=== PATIENT | female | born 1990 | race Caucasian/White ===

== ENCOUNTER 2024-02-10 19:22 | Emergency (ER) | payer BC ==
[~2024-02-10] VITALS: Ht 162.6 cm; Wt 70.5 kg
[2024-02-10 20:43] VITALS: BP 108/79; PULSE 85; RESP 19; TEMP 98.4; O2SAT 97
[2024-02-10] MEDS ORDERED: OSEL75CA5 PO (21:25)
[2024-02-10] MEDS ORDERED: PROM1SOL4 PO (21:25)
--- NOTE | 2024-02-10 21:26 | ED.PDOC ---
SOB-HPI HPI Comments 33-year-old female presents to the ED chief complaint flu-like symptoms x3 days. Patient is complaining of fevers, cough, throat pain, nasal congestion, and body aches. He states he can ibuprofen Tylenol [id number] with little relief. She also notes that her boyfriend was recently diagnosed with influenza a via swab. Denies chest pain, difficulty breathing, shortness of breath, vomiting, or diarrhea. Chief Complaint: Flu like Time Seen by MD: 19:47 Primary Care Provider: NONE Reviewed notes: Nurses Notes, Medications, Allergies Information Source: Patient Mode of Arrival: Ambulatory Past Medical History PAST MEDICAL HISTORY: Denies Surgical History: Denies all surgeries Family History Family History: Unknown Social History Smoker: Cigarettes, Less Than 1 Pack/Day Alcohol: Occasionally Drugs: Denies Drug Use Lives In: Home Constitutional: reports: chills, fatigue, fever; denies: diaphoresis, malaise, sweats, weakness, others EENTM: reports: nasal discharge, throat pain; denies: blurred vision, double vision, ear bleeding, ear discharge, ear drainage, ear pain, ear ringing, eye pain, eye redness, hearing loss, mouth pain, mouth swelling, nose bleeding, nose congestion, nose pain, photophobia, tearing, throat swelling, voice changes, others Respiratory: reports: cough; denies: hemoptysis, orthopnea, SOB at rest, shortness of breath, SOB with excertion, stridor, wheezing, others Cardiovascular: denies: chest pain, dizzy spells, diaphoresis, Dyspnea on exertion, edema, irregular heart beat, left arm pain, lightheadedness, palpitations, PND, syncope, others Gastrointestinal: denies: abdomen distended, abdominal pain, blood streaked bowels, constipated, diarrhea, dysphagia, difficulty swallowing, hematemesis, melena, nausea, poor appetite, poor fluid intake, rectal bleeding, rectal pain, vomiting, others Genitourinary: denies: abnormal vagina bleeding, burning, dyspareunia, dysuria, flank pain, frequency, hematuria, incontinence, pain, , vagina discharge, urgency, others Neurological: denies: dizziness, fainting, headache, left sided numbness, left sided weakness, numbness, paresthesia, pre-existing deficit, right sided numbness, right sided weakness, seizure, speech problems, tingling, tremors, weakness, others Musculoskeletal: denies: back pain, gout, joint pain, joint swelling, muscle pain, muscle stiffness, neck pain, others Integumetry: denies: bruises, change in color, change in hair/nails, dryness, laceration, lesions, lumps, rash, wounds, others Allergic/Immunocompromised: denies: Difficulty Healing, Frequent Infections, Hives, Itching, others Hematologic/Lymphatic: denies: anemia, blood clots, easy bleeding, easy bruising, swollen glands, others Endocrine: denies: excessive hunger, excessive sweating, excessive thirst, excessive urination, flushing, intolerance to cold, intolerance to heat, unexplained weight gain, unexplained weight loss, others Psychiatric: denies: anxiety, bipolar disorder, depression, hopeless, panic disorder, schizophrenia, sleepless, suicidal, others Physical Exam General Appearance: No Apparent Distress, Normal HEENT: Pharyngeal Erythema, TMs Normal Neck: Full Range of Motion, Non-Tender, Normal, Normal Inspection Respiratory: Chest Non-Tender, Lungs Clear, No Accessory Muscle Use, No Respiratory Distress, Normal Breath Sounds Cardiovascular: No Edema, No JVD, No Murmur, No Gallop, Normal Peripheral Pulses, Regular Rate/Rhythm Breast Exam: Deferred Gastrointestinal: No Organomegaly, Non Tender, No Pulsatile Mass, Normal Bowel Sounds, Soft Genitalia: Deferred Pelvic: Deferred Rectal: Deferred Extremities: Normal capillary refill, Normal inspection, Normal range of motion, Non-tender, No pedal edema Musculoskeletal : Apperance: Normal 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 Was a procedure done?: No Differential Dx Differential Diagnosis: Pneumonia X-Ray, Labs, Meds, VS Vital Signs Date Time Temp Pulse Resp B/P (MAP) Pulse Ox O2 Delivery O2 Flow Rate FiO2 02/10/24 20:43 85 19 97 Room Air 02/10/24 20:43 98.4 85 19 108/79 (89) 97 98.4 02/10/24 20:02 98.4 93 18 117/85 (96) 98 X-Ray, Labs, Meds, VS Comment Likely influenza patient's boyfriend recently diagnosed swabbed for positive influenza A. Treat patient with Tamiflu. Also promethazine cough medicine. Thighs continue [id number] Tylenol or Motrin as needed for the pain and fever per labeled dosing instructions advised to rest increase p.o. fluids with electrolytes ER return precautions given patient indicated understanding. Time of 1ST Reevaluation: 21:23 Reevaluation 1ST: Improved Patient Education/Counseling: Diagnosis, Treatment, Prognosis, Need For Follow Up Family Education/Counseling: No Family Present Departure 1 Departure Time of Disposition: 21:23 Impression: Primary Impression: Influenza Disposition: HOME / SELF CARE / HOMELESS Condition: Stable e-Prescriptions Promethazine-Dm (Promethazine Dm 6.25-15 mg/5Ml) 1 Mela Mela 5 ML PO QID for 3 Days, #60 ML Prov: LOLIS RENE 02/10/24 Oseltamivir Phosphate (Tamiflu) 75 Mg Cap 1 CAP PO BID for 5 Days, #10 CAP Prov: LOLIS RENE 02/10/24 Discharged With: Self Critical Care Note Critical Care Time?: No Stability Stability form required: No Heart Score Heart Score: Heart Score Response (Comments) Value History N/A 0 EKG N/A 0 Age <45 0 Risk Factors N/A 0 Troponin N/A 0 Total 0 LOLIS RNEE Feb 10, 2024 21:26
== END 2024-02-10 21:43 | disposition home or self-care (01) ==
LOC: ER 19:22
DX: J11.1 Influenza due to unidentified influenza virus with other respiratory manifestations (principal); F17.210 Nicotine dependence, cigarettes, uncomplicated

== ENCOUNTER 2024-04-22 11:24 | Emergency (ER) | payer SELFPAY ==
[~2024-04-22] VITALS: Ht 162.6 cm; Wt 66.6 kg
[2024-04-22 11:52] LABS: Basophils # (auto) 0 10 ^3/uL (0-0.2); Basophils % (auto) 0.4 % (0.0-2.0); Eosinophils # (auto) 0 10 ^3/uL (0-0.8); Eosinophils % (auto) 0.1 % (0.0-7.0); Hematocrit 44.4 % (36.0-46.0); Hemoglobin 15.6 g/dL (12.2-16.2); Lymphocytes # (auto) 1.7 10 ^3/uL (0.4-5.4); Lymphocytes % (auto) 18.2 % (10.0-50.0); Mean Corpuscular Hgb Conc. 35.1 g/dL (32.0-36.0); Mean Corpuscular Volume 93.9 fL (80.0-100.0); Monocytes # (auto) 0.5 10 ^3/uL (0-1.3); Monocytes % (auto) 5.2 % (0.0-12.0); Neutrophils # (auto) 7.1 10 ^3/uL (1.6-8.6); Neutrophils % (auto) 76.1 % (37.0-80.0); Nucleated Red Blood Cells % 0.1 %; Platelet Count (auto) 294 10^3/uL (140-450); Red Blood Cells 4.73 10^6/uL (4.0-5.20); Red Cell Distribution Width 13.4 % (11.8-14.3); White Blood Cell 9.3 10^3/uL (4.4-10.8)
[2024-04-22 11:55] LABS: Urine Bacteria None Seen /hpf (None Seen)
[2024-04-22 12:01] LABS: Urine Blood Negative /uL (Negative); Urine Clarity Clear (Clear); Urine Color Yellow (Yellow); Urine Mucus FEW (None Seen); Urine Protein, UAD TRACE (Negative); Urine Specific Gravity 1.025 (1.001-1.035); Urine Squamous Epithelial Cell FEW /hpf (<5); Urine Urobilinogen Normal (Negative); Urine WBC 4 /HPF (0-5)
[2024-04-22 12:10] LABS: Alanine Aminotransferase 18 U/L (7-40); Alkaline Phosphatase 47 U/L (46-116); Anion Gap 9 (5-15); Aspartate Aminotransferase 23 U/L (13-40); BUN/Creatinine Ratio 9.3 (10.0-20.0); Carbon Dioxide 23 mmol/L (20-31); Chloride 106 mmol/L (98-107); Glucose 89 mg/dL (74-106); Lipase 34 U/L (12-53); Potassium 3.9 mmol/L (3.5-5.1); Sodium 138 mmol/L (136-145)
[2024-04-22 12:11] VITALS: PULSE 99; RESP 14; O2SAT 99
[2024-04-22 12:11] LABS: Albumin 5.2 g/dL (3.2-4.8); Bilirubin, Total 0.5 mg/dL (0.2-1.0); Blood Urea Nitrogen 7 mg/dL (9-23); Total Protein 8.5 g/dL (5.7-8.2)
--- NOTE | 2024-04-22 12:18 | ED.PDOC ---
GI ASSESSMENT HPI Comments 33Y F with PMHx gastric ulcer and presents to ED for chief complaint upper/mid abd pain [id number] with nausea/vomiting/diarrhea since 0400 today. Pt denies fever, urinary symptoms, chest pain, and SOB. Pt denies sick contact. Pt states she was treated for the gastric ulcer 10 years ago and has not had another one since then. Pt currently takes vitamins and Tylenol at home. No other symptoms reported. Chief Complaint: Nausea/Vomiting Time Seen by MD: 12:02 Primary Care Provider: NONE Reviewed Notes: Nurses Notes, Medications, Allergies Allergies: Coded Allergies: NO KNOWN ALLERGIES (Unverified , 10/10/09) Home Meds Active Scripts Omeprazole Magnesium (Omeprazole) 20 Mg Tab, 20 MG PO DAILY, #30 TAB Prov:RANDY DEAN MD 04/22/24 Ondansetron Odt 4MG Tab (ZOFRAN PO) 4 Mg Tb, 4 MG PO TID PRN, #30 TAB prn n/v ODT TAB-DISSOLVE IN MOUTH, THEN SWALLOW Prov:RANDY DEAN MD 04/22/24 Information Source: Patient Mode of Arrival: Ambulatory Timing: Hours Duration: Since onset Prehospital treatment: None Quality: Aching Vomitus: Bilious, Watery Stool: Watery Severity: Mild Recent: None Recent Hx of: None Pain Location: Epigastric Modifying Factors: Nothing Associated sign and symptoms: Nausea, Vomiting, Diarrhea, Abdominal Pain Past Medical History Past Medical History (Other): Gastric ulcer 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 History: PUBLIC 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 History: Denies all PUBLIC 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 INSPECTOR Hx Family History Family History: Unknown Social History Smoker: Cigarettes, Less Than 1 Pack/Day Alcohol: Occasionally Drugs: Denies Drug Use Lives In: Home Constitutional: denies: chills, diaphoresis, fatigue, fever, malaise, sweats, weakness, others EENTM: denies: blurred vision, double vision, ear bleeding, ear discharge, ear drainage, ear pain, ear ringing, eye pain, eye redness, hearing loss, mouth pain, mouth swelling, nasal discharge, nose bleeding, nose congestion, nose pain, photophobia, tearing, throat pain, throat swelling, voice changes, others Respiratory: denies: cough, hemoptysis, orthopnea, SOB at rest, shortness of breath, SOB with excertion, stridor, wheezing, others Cardiovascular: denies: chest pain, dizzy spells, diaphoresis, Dyspnea on exertion, edema, irregular heart beat, left arm pain, lightheadedness, palpitations, PND, syncope, others Gastrointestinal: reports: abdominal pain, diarrhea, nausea, vomiting; denies: abdomen distended, blood streaked bowels, constipated, dysphagia, difficulty swallowing, hematemesis, melena, poor appetite, poor fluid intake, rectal bleeding, rectal pain, others Genitourinary: denies: abnormal vagina bleeding, burning, dyspareunia, dysuria, flank pain, frequency, hematuria, incontinence, pain, , vagina discharge, urgency, others Neurological: denies: dizziness, fainting, headache, left sided numbness, left sided weakness, numbness, paresthesia, pre-existing deficit, right sided numbness, right sided weakness, seizure, speech problems, tingling, tremors, weakness, others Musculoskeletal: denies: back pain, gout, joint pain, joint swelling, muscle pain, muscle stiffness, neck pain, others Integumetry: denies: bruises, change in color, change in hair/nails, dryness, laceration, lesions, lumps, rash, wounds, others Allergic/Immunocompromised: denies: Difficulty Healing, Frequent Infections, Hives, Itching, others Hematologic/Lymphatic: denies: anemia, blood clots, easy bleeding, easy bruising, swollen glands, others Endocrine: denies: excessive hunger, excessive sweating, excessive thirst, excessive urination, flushing, intolerance to cold, intolerance to heat, unexplained weight gain, unexplained weight loss, others Psychiatric: denies: anxiety, bipolar disorder, depression, hopeless, panic disorder, schizophrenia, sleepless, suicidal, others All Other Systems: Reviewed and Negative Physical Exam General Appearance: Mild Distress HEENT: PERRL/EOMI, Other (dry mucous membranes) Neck: Full Range of Motion, Normal Inspection Respiratory: Chest Non-Tender, Lungs Clear, No Respiratory Distress, Normal Breath Sounds Cardiovascular: No Edema, No JVD, Regular Rate/Rhythm Breast Exam: Deferred Gastrointestinal: Epigastric, RUQ, Tenderness Genitalia: Deferred Pelvic: Deferred Rectal: Deferred Extremities: Normal inspection, Normal range of motion, Non-tender, No pedal e cady Neurologic: Alert (Oriented x4), Normal Affect, Normal Mood, Other (Ambulatory. No gross focal deficit.) Cerebellar Function: NOT DONE Reflexes: NOT DONE Skin: Dry, Normal Color, Warm Lymphatic: NOT DONE Was a procedure done? Was a procedure done?: No GI differential Dx Differential Diagnosis: Cholecystitis, Diverticular disease, Gastritis/PUD, Gastroenteritis, UTI, Dehydration, Electrolyte Imbalance, , Bacterial, Viral, Hypovolemia, Stress Ulcer X-Ray, Labs, Meds, VS Vital Signs Date Time Temp Pulse Resp B/P (MAP) Pulse Ox O2 Delivery O2 Flow Rate FiO2 04/22/24 13:51 98.2 82 18 103/70 (81) 98 98.2 04/22/24 13:49 76 16 126/77 04/22/24 12:45 99 15 122/67 04/22/24 12:11 99 14 99 Room Air* 0 21 04/22/24 12:11 98.0 99 15 122/67 (85) 99 98.0 04/22/24 11:43 98.4 105 16 125/85 (98) 97 98.4 Lab Test 04/22/24 11:40 04/22/24 11:33 Range/Units White Blood Count 9.3 4.4-10.8 10^3/uL Red Blood Count 4.73 4.0-5.20 10^6/uL Hemoglobin 15.6 12.2-16.2 g/dL Hematocrit 44.4 36.0-46.0 % Mean Corpuscular Volume 93.9 80.0-100.0 fL Mean Corpuscular Hemoglobin 33.0 H 28.0-32.0 pg Mean Corpuscular Hemoglobin Concent 35.1 32.0-36.0 g/dL Red Cell Distribution Width 13.4 11.8-14.3 % Platelet Count 294 140-450 10^3/uL Mean Platelet Volume 7.5 6.9-10.8 fL Neutrophils (%) (Auto) 76.1 37.0-80.0 % Lymphocytes (%) (Auto) 18.2 10.0-50.0 % Monocytes (%) (Auto) 5.2 0.0-12.0 % Eosinophils (%) (Auto) 0.1 0.0-7.0 % Basophils (%) (Auto) 0.4 0.0-2.0 % Neutrophils # (Auto) 7.1 1.6-8.6 10 ^3/uL Lymphocytes # (Auto) 1.7 0.4-5.4 10 ^3/uL Monocytes # (Auto) 0.5 0-1.3 10 ^3/uL Eosinophils # (Auto) 0 0-0.8 10 ^3/uL Basophils # (Auto) 0 0-0.2 10 ^3/uL Nucleated Red Blood Cells 0.1 % Sodium Level 138 136-145 mmol/L Potassium Level 3.9 3.5-5.1 mmol/L Chloride Level 106 98-107 mmol/L Carbon Dioxide Level 23 20-31 mmol/L Anion Gap 9 5-15 Blood Urea Nitrogen 7 L 9-23 mg/dL Creatinine 0.75 0.550-1.02 mg/dL Glomerular Filtration Rate Calc 107 >90 mL/min BUN/Creatinine Ratio 9.3 L 10.0-20.0 Serum Glucose 89 74-106 mg/dL Calcium Level 10.0 8.7-10.4 mg/dL Total Bilirubin 0.5 0.2-1.0 mg/dL Aspartate Amino Transferase (AST) 23 13-40 U/L Alanine Aminotransferase (ALT) 18 7-40 U/L Alkaline Phosphatase 47 46-116 U/L Total Protein 8.5 H 5.7-8.2 g/dL Albumin 5.2 H 3.2-4.8 g/dL Lipase 34 12-53 U/L Beta HCG, Quantitative 0.0 L 1.5-4.2 mIU/mL Urine Color Yellow Yellow Urine Clarity Clear Clear Urine pH 7.0 5.0-9.0 Urine Specific Thayer 1.025 1.001-1.035 Urine Protein Trace H Negative Urine Ketones 1+ H Negative Urine Blood Negative Negative /uL Urine Nitrite Negative Negative Urine Bilirubin Negative Negative Urine Urobilinogen Normal Negative mg/dL Urine Leukocyte Esterase Negative Negative /uL Urine RBC 4 0 - 4 /hpf Urine Microscopic WBC 4 0-5 /HPF Urine Squamous Epithelial Cells Few <5 /hpf Urine Bacteria None seen None Seen /hpf Urine Mucus Few None Seen Urine Glucose Normal Normal mg/dL Current Medications Medications (Trade) Dose Ordered Sig/Ky Route Start Time Stop Time Status Last Admin Sodium Chloride 1,000 ml @ 1,000 mls/hr Q1H ONCE IV 04/22/24 11:45 04/22/24 12:44 DC 04/22/24 12:41 Ondansetron HCl (Zofran) 4 mg ONCE ONCE IV 04/22/24 11:45 04/22/24 11:46 DC 04/22/24 12:44 Famotidine (Pepcid Injection) 20 mg ONCE ONCE IV 04/22/24 11:45 04/22/24 11:46 DC 04/22/24 12:45 Morphine Sulfate 4 mg ONCE ONCE IV 04/22/24 12:30 04/22/24 12:31 DC 04/22/24 12:45 PROCEDURE(s): ABPL - CT AB PEL WO CON-NO ORAL OR IV REASON: upper abd pain n/v ORDER NUMBER(s): [id number], ACCESSION NUMBER(s): [id number] CT ABDOMEN AND PELVIS WITHOUT CONTRAST CLINICAL HISTORY: upper abd pain n/v TECHNIQUE: Multiple contiguous axial images of the abdomen and pelvis without intravenous contrast. The images were reformatted degenerate coronal and sagittal reconstructions. All CT scans at this medical facility are performed using dose modulation techniques as appropriate to a performed exam including the following:Automated exposure control was utilized; adjustment of the MA and/or KV according to patient size; and use of iterative reconstruction technique. Radiation Dose Information: CT Dose: CTDI volume is 10.56 mGy. Dose-length product is 521.42 mGy*cm Comparison: None FINDINGS: Evaluation of the abdomen and pelvis is limited without intravenous contrast. Gallbladder is fluid-filled and distended without evidence of gallstones. The liver, pancreas, kidneys, adrenal glands, and spleen appear within normal limits. There is no gross evidence of abdominal lymphadenopathy. There is no free fluid or free air. There is a small hiatal hernia. The stomach otherwise grossly appears within normal limits. The small and large bowel loops demonstrate normal caliber. A normal appearing appendix is seen in the right lower quadrant abdomen. The abdominal aorta and IVC appear within normal limits. The bladder appears unremarkable for the degree of distention. Pelvic organ appears within normal limits. There is no gross evidence of a pelvic mass. There is no free fluid collection. Lung bases are clear. There is no acute osseous abnormality. IMPRESSION: 1. Distended fluid-filled gallbladder without evidence of gallstones. 2. Small hiatal hernia. PROCEDURE(s): GBUS - GALLBLADDER REASON: RUQ pain ORDER NUMBER(s): [id number], ACCESSION NUMBER(s): [id number] EXAM: US GALLBLADDER CLINICAL HISTORY: RUQ pain TECHNIQUE: Grayscale and limited color flow doppler ultrasound of the right upper quadrant is performed. COMPARISON: None Findings: Liver measures 14.7 cm in length with normal echotexture and contour. No evidence of focal hepatic lesions or intra- or extrahepatic ductal dilatation. Common bile duct measures 0.5 cm in diameter. Normal hepatopedal flow noted within the portal vein. No perihepatic free fluid is noted. Gallbladder appears within normal limits with gallbladder wall thickness measuring 0.2 cm. There are shadowing calculi. No evidence of biliary sludge or pericholecystic fluid. Sonographic Stone's sign not documented. Pancreas only partially visualized due to overlying bowel gas but is otherwise unremarkable. Right kidney measures 11.3 cm with normal contours, echotexture and cortical thickness. No evidence of hydronephrosis, calculi, cystic or solid renal lesions. Partially visualized inferior vena cava unremarkable. Impression: 1. No evidence of acute right upper quadrant abnormalities. 2. Cholelithiasis without evidence of acute cholecystitis. X-Ray, Labs, Meds, VS Comment 33-year-old female with a history of PUD presenting complaining of upper abdominal pain, nausea, vomiting and diarrhea Vitals remarkable for heart rate 105 Exam remarkable for epigastric & RUQ tenderness to palpation Rhythm strip independently interpreted by me: Sinus tach, rate 105, no ectopy. CT abdomen and pelvis IMPRESSION: 1. Distended fluid-filled gallbladder without evidence of gallstones. 2. Small hiatal hernia. Bladder ultrasound: Impression: 1. No evidence of acute right upper quadrant abnormalities. 2. Cholelithiasis without evidence of acute cholecystitis. CBC, CMP, lipase, hCG and unremarkable for any abnormality of acute significance, UA Patient treated with the following in the ED: 1 L 0.9 normal saline IV bolus, morphine 4 mg IV, Zofran 4 mg IV, Pepcid 20 mg IV On re-evaluation, patient states symptoms have improved. Tachycardia has resolved. Other vitals are stable. Patient tolerated p.o. fluids. Hospitalization was considered, however patient had rapid improvement of symptoms with treatment in the ED, and I no longer feel hospitalization is necessary. Patient now appears stable for discharge with close outpatient follow-up with her primary physician. Rx Zofran, omeprazole, [place] Time of 1ST Reevaluation: 12:32 Reevaluation 1ST: Unchanged Patient Education/Counseling: Diagnosis, Treatment Family Education/Counseling: No Family Present Departure 1 Departure Time of Disposition: 16:33 Impression: Primary Impression: Biliary colic Disposition: 01 HOME / SELF CARE / HOMELESS Condition: Stable Additional Instructions: Your blood tests were unremarkable. Your CT scan showed a distended and fluid- filled gallbladder. The report is enclosed below. Your ultrasound showed you have gallbladder stones, but no gallbladder infection. The report is enclosed below. There is no emergent treatment required for gallstones, just pain medication and medication for nausea and vomiting. I have prescribed medication for your symptoms. Follow-up with your primary doctor in 1-2 days. Return to ER for persistent or worsening symptoms. [place] [id number] Ph: [phone] DIAGNOSTIC IMAGING Diagnostic Imaging Report : [id number] Signed PATIENT: ROSELIA GARRISON ACCT: [id number] UNIT: [id number] : 1990 LOC: ER ROOM / BED: / AGE / SEX: 33 / F ADM STATUS: REG ER SERVICE [id number] ORDERING PHYSICIAN: RANDY DEAN MD PROCEDURE(s): ABPL - CT AB PEL WO CON-NO ORAL OR IV REASON: upper abd pain n/v ORDER NUMBER(s): [id number], ACCESSION NUMBER(s): [id number] CT ABDOMEN AND PELVIS WITHOUT CONTRAST CLINICAL HISTORY: upper abd pain n/v TECHNIQUE: Multiple contiguous axial images of the abdomen and pelvis without intravenous contrast. The images were reformatted degenerate coronal and sagittal reconstructions. All CT scans at this medical facility are performed using dose modulation techniques as appropriate to a performed exam including the following:Automated exposure control was utilized; adjustment of the MA and/or KV according to patient size; and use of iterative reconstruction technique. Radiation Dose Information: CT Dose: CTDI volume is 10.56 mGy. Dose-length product is 521.42 mGy*cm Comparison: None FINDINGS: Evaluation of the abdomen and pelvis is limited without intravenous contrast. Gallbladder is fluid-filled and distended without evidence of gallstones. The liver, pancreas, kidneys, adrenal glands, and spleen appear within normal limits. There is no gross evidence of abdominal lymphadenopathy. There is no free fluid or free air. There is a small hiatal hernia. The stomach otherwise grossly appears within normal limits. The small and large bowel loops demonstrate normal caliber. A normal appearing appendix is seen in the right lower quadrant abdomen. The abdominal aorta and IVC appear within normal limits. The bladder appears unremarkable for the degree of distention. Pelvic organ appears within normal limits. There is no gross evidence of a pelvic mass. There is no free fluid collection. Lung bases are clear. There is no acute osseous abnormality. IMPRESSION: 1. Distended fluid-filled gallbladder without evidence of gallstones. 2. Small hiatal hernia. HS:Y [place] [address] Ph: [phone] DIAGNOSTIC IMAGING Diagnostic Imaging Report : [id number] Signed PATIENT: ROSELIA GARRISON ACCT: [id number] UNIT: [id number] : 1990 LOC: ER ROOM / BED: / AGE / SEX: 33 / F ADM STATUS: REG ER SERVICE [id number] ORDERING PHYSICIAN: RANDY DEAN MD PROCEDURE(s): GBUS - GALLBLADDER REASON: RUQ pain ORDER NUMBER(s): [id number], ACCESSION NUMBER(s): [id number] EXAM: US GALLBLADDER CLINICAL HISTORY: RUQ pain TECHNIQUE: Grayscale and limited color flow doppler ultrasound of the right upper quadrant is performed. COMPARISON: None Findings: Liver measures 14.7 cm in length with normal echotexture and contour. No evidence of focal hepatic lesions or intra- or extrahepatic ductal dilatation. Common bile duct measures 0.5 cm in diameter. Normal hepatopedal flow noted wit hin the portal vein. No perihepatic free fluid is noted. Gallbladder appears within normal limits with gallbladder wall thickness measuring 0.2 cm. There are shadowing calculi. No evidence of biliary sludge or pericholecystic fluid. Sonographic Stone's sign not documented. Pancreas only partially visualized due to overlying bowel gas but is otherwise unremarkable. Right kidney measures 11.3 cm with normal contours, echotexture and cortical thickness. No evidence of hydronephrosis, calculi, cystic or solid renal lesions. Partially visualized inferior vena cava unremarkable. Impression: 1. No evidence of acute right upper quadrant abnormalities. 2. Cholelithiasis without evidence of acute cholecystitis. e-Prescriptions Hydrocodone-Acetaminophen (Hydrocodone Bitartrate/AC 5-325 mg) 1 Tab Tab 1 TAB PO Q6HP PRN, #20 TAB Prov: RANDY DEAN MD 04/22/24 Omeprazole Magnesium (Omeprazole) 20 Mg Tab 20 MG PO DAILY, #30 TAB Prov: RANDY DEAN MD 04/22/24 Ondansetron Odt 4MG Tab (ZOFRAN PO) 4 Mg Tb 4 MG PO TID PRN, #30 TAB prn n/v ODT TAB-DISSOLVE IN MOUTH, THEN SWALLOW Prov: RANDY DEAN MD 04/22/24 Discharged With: Relative Critical Care Note Critical Care Time?: No Stability Stability form required: No Heart Score Heart Score: Heart Score Response (Comments) Value History N/A 0 EKG N/A 0 Age N/A 0 Risk Factors N/A 0 Troponin N/A 0 Total 0 I personally scribed for RANDY DEAN MD) on 04/22/24 at 12:18. Electronically submitted by Lena Anne ([place]). I personally scribed for RANDY DEAN MD) on 04/22/24 at 13:14. Electronically submitted by Lena Anne ([place]). I personally scribed for RANDY DEAN MD) on 04/22/24 at 16:31. Electronically submitted by Lena Anne ([place]). RANDY DEAN MD Apr 22, 2024 12:18
[2024-04-22] MEDS ORDERED: OMEP-434 PO (12:31)
[2024-04-22] MEDS ORDERED: ZOFR4T PO (12:31)
[2024-04-22] MEDS: SODIUM CHLORIDE 0.9% 1,000 ML IV ONE (12:41)
[2024-04-22] MEDS: ONDANSETRON HCL 4 MG/2 ML VIAL IV ONE (12:44)
[2024-04-22] MEDS: FAMOTIDINE (10MG/ML) 2ML VL IV ONE (12:45)
[2024-04-22] MEDS: MORPHINE SULFATE 4 MG/ML SYR/VIAL IV ONE (12:45)
--- NOTE | 2024-04-22 12:58 | DVH ---
CT ABDOMEN AND PELVIS WITHOUT CONTRAST CLINICAL HISTORY: upper abd pain n/v TECHNIQUE: Multiple contiguous axial images of the abdomen and pelvis without intravenous contrast. T he images were reformatted degenerate coronal and sagittal reconstructions. All CT scans at this medical facility are performed using dose modulation techniques as appropriate t o a performed exam including the following:Automated exposure control was utilized; adjustment of the MA and/or KV according to patient size; and use of iterative reconstruction technique. Radiation Dose Information: CT Dose: CTDI volume is 10.56 mGy. Dose-length product is 521.42 mGy*cm Comparison: None FINDINGS: Evaluation of the abdomen and pelvis is limited without intravenous contrast. Gallbladder is fluid-filled and distended without evidence of gallstones. The liver, pancreas, kid neys, adrenal glands, and spleen appear within normal limits. There is no gross evidence of abdominal lymphadenopathy. There is no free fluid or free air. There is a small hiatal hernia. The stomach otherwise grossly appears within normal limits. The smal l and large bowel loops demonstrate normal caliber. A normal appearing appendix is seen in the right lower quadrant abdomen. The abdominal aorta and IVC appear within normal limits. The bladder appears unremarkable for the degree of distention. Pelvic organ appears within normal berry its. There is no gross evidence of a pelvic mass. There is no free fluid collection. Lung bases are clear. There is no acute osseous abnormality. IMPRESSION: 1. Distended fluid-filled gallbladder without evidence of gallstones. 2. Small hiatal hernia. HS:Y
--- NOTE | 2024-04-22 15:08 | DVH ---
EXAM: US GALLBLADDER CLINICAL HISTORY: RUQ pain TECHNIQUE: Grayscale and limited color flow doppler ultrasound of the right upper quadrant is perfor med. COMPARISON: None Findings: Liver measures 14.7 cm in length with normal echotexture and contour. No evidence of focal hepatic le sions or intra- or extrahepatic ductal dilatation. Common bile duct measures 0.5 cm in diameter. Norm al hepatopedal flow noted within the portal vein. No perihepatic free fluid is noted. Gallbladder appears within normal limits with gallbladder wall thickness measuring 0.2 cm. There are shadowing calculi. No evidence of biliary sludge or pericholecystic fluid. Sonographic Stone's sign not documented. Pancreas only partially visualized due to overlying bowel gas but is otherwise unremarkable. Right kidney measures 11.3 cm with normal contours, echotexture and cortical thickness. No evidence o f hydronephrosis, calculi, cystic or solid renal lesions. Partially visualized inferior vena cava unremarkable. Impression: 1. No evidence of acute right upper quadrant abnormalities. 2. Cholelithiasis without evidence of acute cholecystitis.
[2024-04-22] MEDS ORDERED: HYDR-4902 PO (16:35)
[2024-04-22 17:01] VITALS: BP 112/71; PULSE 98; RESP 17; TEMP 98.2; O2SAT 95
== END 2024-04-22 17:02 | disposition home or self-care (01) ==
LOC: ER 11:24
DX: K80.50 Calculus of bile duct without cholangitis or cholecystitis without obstruction (principal); F17.210 Nicotine dependence, cigarettes, uncomplicated; Z87.11 Personal history of peptic ulcer disease; Z98.890 Other specified postprocedural states; Z79.899 Other long term (current) drug therapy
CPT/HCPCS: 36415; 74176; 76705; 80053; 81001; 83690; 84702; 85025; 96361; 96374; 96375; 99285; J2270; J2405; J3490; J7030

== ENCOUNTER 2024-07-02 00:32 | Emergency (ER) | payer BC, MEDICAID ==
[~2024-07-02] VITALS: Ht 162.6 cm; Wt 71.2 kg
[~2024-07-02 00:32] MED LIST: HYDR-4902 PO; OMEP-434 PO; ZOFR4T PO
[2024-07-02 01:39] LABS: Basophils # (auto) 0 10 ^3/uL (0-0.2); Basophils % (auto) 0.7 % (0.0-2.0); Eosinophils # (auto) 0 10 ^3/uL (0-0.8); Eosinophils % (auto) 0.6 % (0.0-7.0); Hematocrit 41.6 % (36.0-46.0); Lymphocytes # (auto) 2.8 10 ^3/uL (0.4-5.4); Lymphocytes % (auto) 44.5 % (10.0-50.0); Mean Corpuscular Hemoglobin 31.9 pg (28.0-32.0); Mean Corpuscular Hgb Conc. 33.7 g/dL (32.0-36.0); Mean Corpuscular Volume 94.6 fL (80.0-100.0); Monocytes # (auto) 0.3 10 ^3/uL (0-1.3); Monocytes % (auto) 4.9 % (0.0-12.0); Neutrophils # (auto) 3.1 10 ^3/uL (1.6-8.6); Neutrophils % (auto) 49.3 % (37.0-80.0); Nucleated Red Blood Cells % 0.1 %; Platelet Count (auto) 298 10^3/uL (140-450); Red Blood Cells 4.39 10^6/uL (4.0-5.20); Red Cell Distribution Width 13.1 % (11.8-14.3); White Blood Cell 6.2 10^3/uL (4.4-10.8)
[2024-07-02 01:44] LABS: Urine Bacteria FEW /hpf (None Seen); Urine Blood Negative /uL (Negative); Urine Clarity Clear (Clear); Urine Color Colorless (Yellow); Urine Protein, UAD Negative (Negative); Urine Specific Gravity 1.005 (1.001-1.035); Urine Squamous Epithelial Cell FEW /hpf (<5); Urine Urobilinogen Normal (Negative); Urine WBC 3 /HPF (0-5); Urine pH 6.5 (5.0-9.0)
[2024-07-02 01:50] LABS: Chloride 106 mmol/L (98-107); Potassium 3.9 mmol/L (3.5-5.1); Sodium 139 mmol/L (136-145)
[2024-07-02 01:51] LABS: Anion Gap 9 (5-15); Calcium 9.6 mg/dL (8.7-10.4); Carbon Dioxide 24 mmol/L (20-31)
--- NOTE | 2024-07-02 01:55 | DVH ---
CT HEAD WITHOUT CONTRAST INDICATION: Severe posterior headache COMPARISON: None TECHNIQUE: CT of the head without intravenous contrast. RADIATION DOSE: CTDIvol: mGy, DLP: mGy*cm FINDINGS: There is no evidence of intracranial hemorrhage, infarct, extra-axial collection, mass effect, midli ne shift, herniation or hydrocephalus. The ventricles, sulci and cisterns are normal. The villanueva-white differentiation is normal. Visualized paranasal sinuses and mastoid air cells are clear. Soft tissues and osseous structures are unremarkable. IMPRESSION: No intracranial abnormality.
[2024-07-02 01:56] LABS: Blood Urea Nitrogen 10 mg/dL (9-23)
[2024-07-02 01:57] LABS: Glucose 107 mg/dL (74-106)
[2024-07-02] MEDS ORDERED: ZOFR4T PO (02:16)
[2024-07-02] MEDS ORDERED: HYDR-4798 PO (02:16)
--- NOTE | 2024-07-02 02:17 | ED.PDOC ---
History of Present Illness HPI Comments This patient is a pleasant 33-year-old female who arrives the ED today for evaluation of headache concerns with a intermittent nausea off and on for the past two weeks. Patient states that the symptoms came on aggressively at 1st but have abdomen flowed since. Patient states her times with a headache is sign ificant. Patient denies any traumatic events or history of intracranial concerns or migraines. Patient denies any fever. Vital signs were stable on arrival. Chief Complaint: Headache Time Seen by MD: 00:37 Primary Care Provider: MICHAEL Reviewed Notes: Nurses Notes Allergies: Coded Allergies: NO KNOWN ALLERGIES (Unverified , 10/10/09) Home Meds Active Scripts Hydrocodone-Acetaminophen (Hydrocodone Bitartrate/AC 5-325 mg) 1 Tab Tab, 1 TAB PO Q6HP PRN, #20 TAB Prov:RANDY DEAN MD 04/22/24 Omeprazole Magnesium (Omeprazole) 20 Mg Tab, 20 MG PO DAILY, #30 TAB Prov:RANDY DEAN MD 04/22/24 Ondansetron Odt 4MG Tab (ZOFRAN PO) 4 Mg Tb, 4 MG PO TID PRN, #30 TAB prn n/v ODT TAB-DISSOLVE IN MOUTH, THEN SWALLOW Prov:RANDY DEAN MD 04/22/24 Information Source: Patient Mode of Arrival: Ambulatory Severity: Moderate Timing: Weeks Duration: Intermittent Prehospital treatment: None Past Medical History PAST MEDICAL HISTORY: Denies Surgical History: VIROLOGIST History: Denies all VIROLOGIST Hx Family History Family History: Unknown Social History Smoker: Cigarettes, Less Than 1 Pack/Day Alcohol: Occasionally Drugs: Denies Drug Use Lives In: Home Constitutional: denies: chills, diaphoresis, fatigue, fever, malaise, sweats, weakness, others EENTM: denies: blurred vision, double vision, ear bleeding, ear discharge, ear drainage, ear pain, ear ringing, eye pain, eye redness, hearing loss, mouth pain, mouth swelling, nasal discharge, nose bleeding, nose congestion, nose pain, photophobia, tearing, throat pain, throat swelling, voice changes, others Respiratory: denies: cough, hemoptysis, orthopnea, SOB at rest, shortness of breath, SOB with excertion, stridor, wheezing, others Cardiovascular: denies: chest pain, dizzy spells, diaphoresis, Dyspnea on exertion, edema, irregular heart beat, left arm pain, lightheadedness, palpitations, PND, syncope, others Gastrointestinal: reports: nausea; denies: abdomen distended, abdominal pain, blood streaked bowels, constipated, diarrhea, dysphagia, difficulty swallowing, hematemesis, melena, poor appetite, poor fluid intake, rectal bleeding, rectal pain, vomiting, others Genitourinary: denies: abnormal vagina bleeding, burning, dyspareunia, dysuria, flank pain, frequency, hematuria, incontinence, pain, , vagina discharge, urgency, others Neurological: reports: headache; denies: dizziness, fainting, left sided numbness, left sided weakness, numbness, paresthesia, pre-existing deficit, right sided numbness, right sided weakness, seizure, speech problems, tingling, tremors, weakness, others Musculoskeletal: denies: back pain, gout, joint pain, joint swelling, muscle pain, muscle stiffness, neck pain, others Integumetry: denies: bruises, change in color, change in hair/nails, dryness, laceration, lesions, lumps, rash, wounds, others Allergic/Immunocompromised: denies: Difficulty Healing, Frequent Infections, Hives, Itching, others Hematologic/Lymphatic: denies: anemia, blood clots, easy bleeding, easy bruising, swollen glands, others Endocrine: denies: excessive hunger, excessive sweating, excessive thirst, excessive urination, flushing, intolerance to cold, intolerance to heat, unexplained weight gain, unexplained weight loss, others Psychiatric: denies: anxiety, bipolar disorder, depression, hopeless, panic disorder, schizophrenia, sleepless, suicidal, others Physical Exam General Appearance: Moderate Distress (Due to headache concerns.), Normal HEENT: Head (Unremarkable cranial evaluation. No signs of trauma. No skull depressions or deformities.), Normal ENT Inspection, Pharynx Normal, TMs Normal Neck: Full Range of Motion, Non-Tender, Normal, Normal Inspection Respiratory: Chest Non-Tender, Lungs Clear, No Accessory Muscle Use, No Respiratory Distress, Normal Breath Sounds Cardiovascular: No Edema, No JVD, No Murmur, No Gallop, Normal Peripheral Pulses, Regular Rate/Rhythm Breast Exam: Deferred Gastrointestinal: No Organomegaly, Non Tender, No Pulsatile Mass, Normal Bowel Sounds, Soft Genitalia: Deferred Pelvic: Deferred Rectal: Deferred Extremities: No calf tenderness, Normal capillary refill, Normal inspection, Normal range of motion, Non-tender, No pedal edema Neurologic: Alert, No Motor Deficits, Normal Affect, Normal Mood, No Sensory Deficits Cerebellar Function: Normal Reflexes: Normal Skin: Dry, Normal Color, Warm Lymphatic: No Adenopathy Was a procedure done? Was a procedure done?: No Differential Dx Considerations may include: Migraine headache, intracranial mass, UTI, sepsis, electrolyte abnormality, dehydration, headache X-Ray, Labs, Meds, VS Vital Signs Date Time Temp Pulse Resp B/P (MAP) Pulse Ox O2 Delivery O2 Flow Rate FiO2 07/02/24 01:15 98.3 72 16 101/76 (84) 97 98.3 Lab Test 07/02/24 01:30 07/02/24 01:15 Range/Units White Blood Count 6.2 4.4-10.8 10^3/uL Red Blood Count 4.39 4.0-5.20 10^6/uL Hemoglobin 14.0 12.2-16.2 g/dL Hematocrit 41.6 36.0-46.0 % Mean Corpuscular Volume 94.6 80.0-100.0 fL Mean Corpuscular Hemoglobin 31.9 28.0-32.0 pg Mean Corpuscular Hemoglobin Concent 33.7 32.0-36.0 g/dL Red Cell Distribution Width 13.1 11.8-14.3 % Platelet Count 298 140-450 10^3/uL Mean Platelet Volume 8.1 6.9-10.8 fL Neutrophils (%) (Auto) 49.3 37.0-80.0 % Lymphocytes (%) (Auto) 44.5 10.0-50.0 % Monocytes (%) (Auto) 4.9 0.0-12.0 % Eosinophils (%) (Auto) 0.6 0.0-7.0 % Basophils (%) (Auto) 0.7 0.0-2.0 % Neutrophils # (Auto) 3.1 1.6-8.6 10 ^3/uL Lymphocytes # (Auto) 2.8 0.4-5.4 10 ^3/uL Monocytes # (Auto) 0.3 0-1.3 10 ^3/uL Eosinophils # (Auto) 0 0-0.8 10 ^3/uL Basophils # (Auto) 0 0-0.2 10 ^3/uL Nucleated Red Blood Cells 0.1 % Sodium Level 139 136-145 mmol/L Potassium Level 3.9 3.5-5.1 mmol/L Chloride Level 106 98-107 mmol/L Carbon Dioxide Level 24 20-31 mmol/L Anion Gap 9 5-15 Blood Urea Nitrogen 10 9-23 mg/dL Creatinine 0.77 0.550-1.02 mg/dL Glomerular Filtration Rate Calc 104 >90 mL/min BUN/Creatinine Ratio 13.0 10.0-20.0 Serum Glucose 107 H 74-106 mg/dL Calcium Level 9.6 8.7-10.4 mg/dL Urine Color Colorless Yellow Urine Clarity Clear Clear Urine pH 6.5 5.0-9.0 Urine Specific [place] 1.005 1.001-1.035 Urine Protein Negative Negative Urine Ketones Negative Negative Urine Blood Negative Negative /uL Urine Nitrite Negative Negative Urine Bilirubin Negative Negative Urine Urobilinogen Normal Negative mg/dL Urine Leukocyte Esterase Negative Negative /uL Urine RBC 1 0 - 4 /hpf Urine Microscopic WBC 3 0-5 /HPF Urine Squamous Epithelial Cells Few <5 /hpf Urine Bacteria Few H None Seen /hpf Urine Glucose Normal Normal mg/dL Urine Test Negative Negative X-Ray, Labs, Meds, VS Comment All studies performed the ED were evaluated by me personally. Serum and urine studies were unremarkable for any systemic concerns. CT of the head was unremarkable for any intracranial masses or intracranial concerns. Patient appears to be suffering from a headache. Advised patient utilize medication as needed for symptomatic relief as well as good hydration and healthy nutrition for the next few weeks. If symptoms continue, patient will need to follow up with the primary care provider. Time of 1ST Reevaluation: 02:14 Reevaluation 1ST: Improved Consultation: PCP, Neurology Patient Education/Counseling: Diagnosis, Treatment Family Education/Counseling: Diagnosis, Treatment Departure 1 Departure Time of Disposition: 02:14 Impression: Primary Impression: Headache Disposition: 01 HOME / SELF CARE / HOMELESS Condition: Stable Additional Instructions: Advised patient utilize medication as needed for symptomatic relief. Patient should practice good hydration and healthy nutrition for the next few weeks. If symptoms continue, patient will need to follow up with the primary care provider for continued evaluation and management. e-Prescriptions Hydrocodone-Acetaminophen (Hydrocodone Bitartrate/AC 10-325 mg) 1 Tab Tab 1 TAB PO Q8HP PRN, #5 TAB Prov: EARL SMITH PAC 07/02/24 Ondansetron Odt 4MG Tab (ZOFRAN PO) 4 Mg Tb 4 MG PO Q6HP PRN, #10 TAB ODT TAB-DISSOLVE IN MOUTH, THEN SWALLOW Prov: EARL SMITH PAC 07/02/24 Discharged With: Self, Friend Critical Care Note Critical Care Time?: No Stability Stability form required: No Heart Score Heart Score: Heart Score Response (Comments) Value History N/A 0 EKG N/A 0 Age N/A 0 Risk Factors N/A 0 Troponin N/A 0 Total 0 EARL SMITH PAC July 02, 2024 02:17
[2024-07-02] MEDS: ONDANSETRON ODT 4 MG TAB PO ONE (03:00)
[2024-07-02] MEDS: KETOROLAC TROMETH 60MG/2ML VIAL IM ONE (03:00)
[2024-07-02 03:05] VITALS: BP 106/75; PULSE 62; RESP 16; TEMP 98.6; O2SAT 97
== END 2024-07-02 03:15 | disposition home or self-care (01) ==
LOC: ER 00:32
DX: R51.9 Headache, unspecified (principal); F17.210 Nicotine dependence, cigarettes, uncomplicated; Z79.899 Other long term (current) drug therapy
CPT/HCPCS: 36415; 70450; 80048; 81001; 81025; 85025; 96372; 99285; J1885; Q0162

== ENCOUNTER 2024-10-22 15:12 | Emergency (ER) | payer MEDICAID ==
[~2024-10-22] VITALS: Ht 162.6 cm; Wt 69.8 kg
[~2024-10-22 15:12] MED LIST changes: +HYDR-4798 PO
[2024-10-22 15:58] VITALS: BP 121/86; PULSE 100; RESP 18; TEMP 98.7; O2SAT 94
--- NOTE | 2024-10-22 16:02 | ED.PDOC ---
HPI Comments A 33 YEAR OLD FEMALE PRESENTS TO THE ED WITH COMPLAINT OF LACERATION . PATIENT STATES YESTERDAY SHE LOCKED HERSELF OUT OF HER HOUSE. PATIENT STATES SHE BROKE A WINDOW TO GET BACK IN AND STATES WHILE CLIMBING THE WINDOW TO GET BACK INTO HOME, SHE SUFFERED A 10 CM MULTIPLE LACERATIONS TO THE LEFT UPPER FOREARM AREA . PATIENT STATES THAT SINCE SHE DID CLEAN THE AREA BUT CAME TODAY FOR FURTHER EVALUATION. PATIENT HAS BLEEDING CONTROLLED NOW IN THE ED. PATIENT DENIES FEVER, CHILLS, SHORTNESS OF BREATH, CHEST PAIN, ABDOMINAL PAIN, NAUSEA, VOMITING, HEADACHE, OR OTHER COMPLAINTS. NO OTHER SYMPTOMS OR MODIFYING FACTORS AT THIS TIME. PATIENT IS ALERT, ORIENTED X 4, AND HAS STEADY GAIT. Chief Complaint: Laceration Time Seen by MD: 15:53 Primary Care Provider: MICHAEL Veras Notes: Nurses Notes, Medications, Allergies Allergies: Coded Allergies: NO KNOWN ALLERGIES (Unverified , 10/10/09) Home Meds Active Scripts Cephalexin Monohydrate (Cephalexin) 500 Mg Cap, 1 CAP PO QID, #28 CAP Prov:CRUZ GALE 10/22/24 Hydrocodone-Acetaminophen (Hydrocodone Bitartrate/AC 10-325 mg) 1 Tab Tab, 1 TAB PO Q8HP PRN, #5 TAB Prov:EARL SMITH PAC 07/02/24 Ondansetron Odt 4MG Tab (ZOFRAN PO) 4 Mg Tb, 4 MG PO Q6HP PRN, #10 TAB ODT TAB-DISSOLVE IN MOUTH, THEN SWALLOW Prov:EARL SMITH PAC 07/02/24 Hydrocodone-Acetaminophen (Hydrocodone Bitartrate/AC 5-325 mg) 1 Tab Tab, 1 TAB PO Q6HP PRN, #20 TAB Prov:RANDY DEAN MD 04/22/24 Omeprazole Magnesium (Omeprazole) 20 Mg Tab, 20 MG PO DAILY, #30 TAB Prov:RANDY DEAN MD 04/22/24 Ondansetron Odt 4MG Tab (ZOFRAN PO) 4 Mg Tb, 4 MG PO TID PRN, #30 TAB prn n/v ODT TAB-DISSOLVE IN MOUTH, THEN SWALLOW Prov:RANDY DEAN MD 04/22/24 Information Source: Patient Mode of Arrival: Ambulatory Severity: Mild, Moderate Severity of Laceration: Controlled Bleeding Complexity: Simple Timing: Hours Prehospital treatment: None Laceration Location: Other (LEFT FOREARM ) Mechanism: Glass Last Tetanus: UTD Laceration Length (cm): 9 Skin Type: Linear Depth of Injury: SQ Capillary Refill: < 3 seconds Tender: Mild, Moderate Discharge: None Erythema: None Associated Signs and Symptoms: None Past Medical History PAST MEDICAL HISTORY: Denies Surgical History: , Denies all surgeries WAREHOUSE FOREMAN History: Denies all WAREHOUSE FOREMAN Hx Family History Family History: Unknown Social History Smoker: Cigarettes, Less Than 1 Pack/Day Alcohol: Occasionally Drugs: Denies Drug Use Lives In: Home Constitutional: denies: chills, diaphoresis, fatigue, fever, malaise, sweats, weakness, others EENTM: denies: blurred vision, double vision, ear bleeding, ear discharge, ear drainage, ear pain, ear ringing, eye pain, eye redness, hearing loss, mouth pain, mouth swelling, nasal discharge, nose bleeding, nose congestion, nose pain, photophobia, tearing, throat pain, throat swelling, voice changes, others Respiratory: denies: cough, hemoptysis, orthopnea, SOB at rest, shortness of breath, SOB with excertion, stridor, wheezing, others Cardiovascular: denies: chest pain, dizzy spells, diaphoresis, Dyspnea on exertion, edema, irregular heart beat, left arm pain, lightheadedness, palpitations, PND, syncope, others Gastrointestinal: denies: abdomen distended, abdominal pain, blood streaked bowels, constipated, diarrhea, dysphagia, difficulty swallowing, hematemesis, melena, nausea, poor appetite, poor fluid intake, rectal bleeding, rectal pain, vomiting, others Genitourinary: denies: abnormal vagina bleeding, burning, dyspareunia, dysuria, flank pain, frequency, hematuria, incontinence, pain, , vagina discharge, urgency, others Neurological: denies: dizziness, fainting, headache, left sided numbness, left sided weakness, numbness, paresthesia, pre-existing deficit, right sided numbness, right sided weakness, seizure, speech problems, tingling, tremors, weakness, others Musculoskeletal: denies: back pain, gout, joint pain, joint swelling, muscle pain, muscle stiffness, neck pain, others Integumetry: reports: laceration (LEFT FOREARM); denies: bruises, change in color, change in hair/nails, dryness, lesions, lumps, rash, wounds, others Allergic/Immunocompromised: denies: Difficulty Healing, Frequent Infections, Hives, Itching, others Hematologic/Lymphatic: denies: anemia, blood clots, easy bleeding, easy bruising, swollen glands, others Endocrine: denies: excessive hunger, excessive sweating, excessive thirst, excessive urination, flushing, intolerance to cold, intolerance to heat, unexplained weight gain, unexplained weight loss, others Psychiatric: denies: anxiety, bipolar disorder, depression, hopeless, panic disorder, schizophrenia, sleepless, suicidal, others All Other Systems: Reviewed and Negative Physical Exam General Appearance: No Apparent Distress, Normal HEENT: Normal ENT Inspection, PERRL/EOMI, Pharynx Normal, TMs Normal Neck: Full Range of Motion, Non-Tender, Normal, Normal Inspection Respiratory: Chest Non-Tender, Lungs Clear, No Accessory Muscle Use, No Respiratory Distress, Normal Breath Sounds Cardiovascular: No Edema, No JVD, No Murmur, No Gallop, Normal Peripheral Pulses, Regular Rate/Rhythm Breast Exam: Deferred Gastrointestinal: No Organomegaly, Non Tender, No Pulsatile Mass, Normal Bowel Sounds, Soft Genitalia: Deferred Pelvic: Deferred Rectal: Deferred Extremities: No calf tenderness, Normal capillary refill, Normal range of motion, No pedal edema, Tender (WITH LACERATION ON LEFT VOLAR FOREARM, NO BONY TENDERNESS AND SWELLINHG. ) Musculoskeletal : Apperance: Normal Neurologic: Alert, oil burner repairer II-XII nml as Tested, No Motor Deficits, Normal Affect, Normal Mood, No Sensory Deficits Cerebellar Function: Normal Reflexes: Normal Skin: Dry, Lacerations (9CM LACERATION ON LEFT VOLAR FOREARM, NO BLEEDING AND FB, NEUROVASCULar intact. ), Normal Color, Warm Peripheral Pulses: 2+ carotid (R), 2+ carotid (L) Lymphatic: No Adenopathy Was a procedure done? Was a procedure done?: Yes Sedation Sedation?: No Laceration Repair : Length 9 Anesthetic: Lidocaine Laceration Repair Prep: Saline, Betadine Laceration Repair Wound Comple: layered repair Laceration Repair: Number of sutures (15 SUTURES), SQ, Size (4-0), Simple, Gauze Informed consent obtained: No Risks, benefits, and alternati: Yes Images 1 - 2 - Differential diagnosis Generic Laceration: Hematoma, Neurovascular Injury, Tendon Injury, Abrasion/Contusion, Laceration X-Ray, Labs, Meds, VS Vital Signs Date Time Temp Pulse Resp B/P (MAP) Pulse Ox O2 Delivery O2 Flow Rate FiO2 10/22/24 15:58 98.7 100 18 121/86 (98) 94 98.7 10/22/24 15:58 100 18 94 Room Air* 0 21 10/22/24 15:13 97.7 90 18 137/86 100 97.7 Current Medications Medications (Trade) Dose Ordered Sig/Ky Route Start Time Stop Time Status Last Admin Diphtheria/ Tetanus/Acell Pertussis (Boostrix T-Dap) 0.5 ml ONCE ONCE IM 10/22/24 16:15 10/22/24 16:16 DC 10/22/24 16:19 X-Ray, Labs, Meds, VS Comment EXTERNAL MEDICAL RECORDS REVIEWED: [NONE] INDEPENDENT HISTORIANS: [NONE] SOCIAL DETERMINANTS OF HEALTH: [NONE] LABS ORDERED: NONE REVIEWED AND INTERPRETED RESULTS: NONE IMAGING ORDERED: NONE TREATMENTS ORDERED: TD: 00.5TD IM PROCEDURES PERFORMED: NONE CRITICAL CARE TIME: NONE I HAVE DISCUSSED THE PATIENT WITH THE ATTENDING PHYSICIAN, DR. CLAIRE, HE AGREES WITH THE PATIENT'S PLAN OF CARE AND DISPOSITION. BASED ON HISTORY OF PRESENT ILLNESS, AND PHYSICAL EXAM, PATIENT WILL BE DISCHARGED HOME. DISCUSSED PLAN FOR DISCHARGE HOME WITH RX: KEFLEX 500MG. MEDICATION WARNINGS GIVEN. SHARED DECISION MAKING: DISCUSSED WITH PATIENT THAT THEIR WORKUP WAS NORMAL. PATIENT INSTRUCTED TO FOLLOW UP WITH PRIMARY CARE PROVIDER IN 1-2 DAYS FOR RE- EVALUATION OF SYMPTOMS. PATIENT VERBALIZES UNDERSTANDING TO RETURN TO ED FOR NEW OR WORSENING SYMPTOMS OR IF FOLLOW UP WITH PCP CANNOT BE OBTAINED. PATIENT FEELS COMFORTABLE GOING HOME AT THIS TIME. ALL QUESTIONS ADDRESSED AT TIME OF DISCHARGE. Time of 1ST Reevaluation: 16:30 Reevaluation 1ST: Improved Patient Education/Counseling: Diagnosis, Treatment, Need For Follow Up Family Education/Counseling: Diagnosis, Treatment, No Family Present Medical Screening: No EMC Exist At This Time Departure 1 Departure Time of Disposition: 17:00 Impression: Primary Impression: Laceration of left forearm Qualified Codes: S51.812A - Laceration without foreign body of left forearm, initial encounter Disposition: HOME / SELF CARE / HOMELESS Condition: Stable Additional Instructions: FOLLOW-UP WITH PCP IN 1 TO 2 DAYS. TAKE MEDICATIONS PRESCRIBED. RETURN TO ED FOR ANY NEW OR WORSENING SYMPTOMS. e-Prescriptions Cephalexin Monohydrate (Cephalexin) 500 Mg Cap 1 CAP PO QID, #28 CAP Prov: CRUZ GALE 10/22/24 Discharged With: Self Critical Care Note Critical Care Time?: No Stability Stability form required: No Heart Score Heart Score: Heart Score Response (Comments) Value History N/A 0 EKG N/A 0 Age N/A 0 Risk Factors N/A 0 Troponin N/A 0 Total 0 I personally scribed for CRUZ GALE ([email or web address]) on 10/22/24 at 16:02. Electronically submitted by Dionicio Shen ([email or web address]). CRUZ GALE Oct 22, 2024 16:02
[2024-10-22] MEDS ORDERED: CEPH500C PO (16:05)
[2024-10-22] MEDS: TETANUS-DIPTH-ACEL PERTUSSIS 0.5ML SYR Tdap IM ONE (16:19)
== END 2024-10-22 16:30 | disposition home or self-care (01) ==
LOC: ER 15:13
DX: S51.812A Laceration without foreign body of left forearm, initial encounter (principal); F17.210 Nicotine dependence, cigarettes, uncomplicated; Z79.899 Other long term (current) drug therapy; Z98.890 Other specified postprocedural states; X58.XXXA Exposure to other specified factors, initial encounter; Y93.89 Activity, other specified; Y92.89 Other specified places as the place of occurrence of the external cause; Y99.8 Other external cause status
CPT/HCPCS: 12004; 90471; 90715

== ENCOUNTER 2024-12-28 21:07 | Emergency (ER) | payer MEDICAID ==
[~2024-12-28] VITALS: Ht 162.6 cm; Wt 63.5 kg
[~2024-12-28 21:07] MED LIST changes: +CEPH500C PO
[2024-12-28 21:13] VITALS: BP 107/70; PULSE 113; RESP 20; TEMP 98.1; O2SAT 94
== END 2024-12-28 22:16 | disposition left against medical advice (07) ==
LOC: ER 21:07
DX: N93.9 Abnormal uterine and vaginal bleeding, unspecified (principal); Z53.21 Procedure and treatment not carried out due to patient leaving prior to being seen by health care provider